=== PATIENT | female | born 1950 | race Caucasian/White ===

== ENCOUNTER 2018-05-09 15:29 | Observation (INO) ==
[2018-05-09] MEDS ORDERED: ASPIRIN PO ONE (15:41)
--- NOTE | 2018-05-09 16:01 | Diag Imaging Result Doc PS360 ---
EXAM: CHEST-2 VIEWS 05/09/2018 HISTORY: CP TECHNIQUE: PA and lateral chest COMMENT: There is a fairly large hiatal hernia. The heart size and pulmonary vascularity are within normal limits. The lungs appear to be clear. There are no previous studies. IMPRESSION: Hiatal hernia. Electronically signed by Sher Herring 05/09/2018 3:58 PM
[2018-05-09 16:15] LABS: BASO# 0.02 X1000 (0.0-0.2); BASO% 0.2 % (0.0-0.8); EOS% 0.9 % (0.0-10.0); HEMATOCRIT 40.5 % (37.0-47.0); HEMOGLOBIN 13.1 g/dL (12.0-16.0); IMM GRAN# 0.02 X1000 (0.0-0.04); IMM GRAN% 0.2 % (0.0-0.5); LYMPH# 3.04 X1000 (1.2-3.4); LYMPH% 26.3 % (20.5-51.1); MCH 27.9 PG (27-31); MCHC 32.3 g/dL (33-37); MCV 86.4 FL (81-99); MONO# 0.94 X1000 (0.11-0.59); MONO% 8.1 % (1.7-9.3); MPV 11.3 FL (7.4-10.4); NEUT# 7.44 X1000 (1.4-6.5); NEUT% 64.3 % (42.2-75.2); PLT 239 X1000 (130-400); RBC 4.69 XMIL (4.2-5.4); RDW 15.2 % (11.5-14.5); WBC 11.56 X1000 (4.8-10.8)
[2018-05-09 16:27] LABS: AGAP 14; ALB/GLOB RATIO 1.4; ALBUMIN 3.9 g/dL (3.5-5.0); ALKALINE PHOSPHATASE 65 U/L (32-104); BUN 14 mg/dL (8-22); CALCIUM 9.1 mg/dL (8.8-10.2); CHLORIDE 104 mmol/L (98-107); CK PROFILE 112 U/L (24-173); COSMO 286; CREATININE 0.7 mg/dL (0.5-0.9); ESTIMATED GFR > 60; GLUCOSE 181 mg/dL (70-104); GOT 14 U/L (10-30); GPT 16 U/L (10-36); POTASSIUM 4.2 mmol/L (3.5-5.1); SODIUM 141 mmol/L (136-145); TCO2 23 mmol/L (25-35); TOTAL BILIRUBIN 0.53 mg/dL (0.20-1.00); TOTAL PROTEIN 6.6 g/dL (6.3-8.3)
[2018-05-09 17:20] LABS: INR 0.99; PROTIME 13.9 Seconds (11.0-16.0)
--- NOTE | 2018-05-09 17:59 | PROVIDER DOCUMENTATION ---
This chart was entered by Emely Bullock Scribe, acting as scribe for John Alvarez MD. HPI-Cardiac General - General Source: patient - History of Present Illness-Cardiac Location: reports: central Quality of Pain: reports: pressure Severity in ED: mild Onset/Duration: this afternoon (1500) Timing: still present Context/Activities at Onset: reports: light activity Modifying Factors: improves with: nothing Palpitation Quality: fast/pounding heart beat History of arrythmia: reports: none Aspirin Treatment Today: reports: 325 mg x 1, provided by ED Associated Symptoms: reports: denies symptoms Similar Symptoms Previously?: No Recently Seen Here or By Another Healthcare Provider: No <John Alvarez - Last Filed: 05/09/18 18:53> <Andrew Monaco - Last Filed: 05/09/18 22:13> - General Chief Complaint: Chest Pain Stated Complaint: CHEST PRESSURE Time Seen by Provider: 05/09/18 17:27 Allergies/Adverse Reactions: Patient Allergies Allergy/AdvReac Type Severity Reaction Status Date / Time No Known Allergies Allergy Verified 05/09/18 19:05 - History of Present Illness-Cardiac Nature of Presenting Problem: Patient is a 67 year old female who presents to the ED with palpitations. Patient states palpitations started today around 1500. Patient states having chest pain Monday that resolved. Patient denies shortness of breath. (Emely Bullock) Patient is a 67 year old female who presents to the ED with palpitations. Patient states palpitations started today around 1500. Patient states having chest pain Monday that resolved. Patient denies shortness of breath. (John Alvarez) Review of Systems - Adult - REVIEW OF SYSTEMS - ADULT Constitutional: reports: no symptoms reported Eyes: reports: no symptoms reported Ears, Nose, Mouth & Throat: reports: no symptoms reported Cardiovascular: reports: palpitations. denies: chest pain, heart murmur Respiratory: reports: no symptoms reported Gastrointestinal: reports: no symptoms reported Genitourinary: reports: no symptoms reported Musculoskeletal: reports: no symptoms reported Integumentary: reports: no symptoms reported Neurological: reports: no symptoms reported Psychiatric: reports: no symptoms reported Endocrine: reports: no symptoms reported Hematologic/Lymphatic: reports: no symptoms reported Allergic/Immunologic: reports: no symptoms reported All Other Systems: Reviewed and Negative <ShelliebiJohn X. - Last Filed: 05/09/18 18:53> Past History - Adult - PAST MEDICAL HISTORY-ADULT Review of Records: reports: Nursing Assessment Review, Medications Reviewed, Social history reviewed & non-contributory. Major Childhood Illnesses: reports: denies history Cardiovascular: reports: denies history Respiratory: reports: denies history Gastrointestinal: reports: denies history Obstetrical/Gynecological: reports: denies history Genitourinary: reports: denies history Musculoskeletal: reports: denies history Neurological: reports: denies history Psychiatric: reports: denies history Endocrine/Immune: reports: denies history Other Conditions: reports: denies history - PRIOR SURGERIES/PROCEDURES Surgical/Procedure History: reports: reviewed, not pertinent - IMMUNIZATION STATUS Childhood Immunizations: See Nurse Assessment Flu Vaccine: See Nurse Assessment - FAMILY HISTORY Family History: reviewed, not pertinent - SOCIAL HISTORY Smoking: denies Substance Use: denies <ShelliebiKietJohn X. - Last Filed: 05/09/18 18:53> Physical Exam-General - PHYSICAL EXAM-ADULT Initial Vital Signs Reviewed: Yes - CONSTITUTIONAL General Appearance: alert, no apparent distress - HEAD, EARS, NOSE, MOUTH & THROAT HENMT: normal ENT inspection - RESPIRATORY Respiratory: chest non-tender, lungs clear, normal breath sounds - CARDIOVASCULAR Cardiovascular: irregularly irregular - GASTROINTESTINAL (ABDOMEN) Abdominal Exam: normal bowel sounds, non tender, soft - MUSCULOSKELETAL Extremity: non-tender, normal inspection - SKIN Integumentary: normal color, normal turgor, warm/dry - NEUROLOGIC Neurologic: grossly normal - PSYCHIATRIC Psych/Mental Status: normal mood/affect, oriented x 3 <GyebiKietJohn X. - Last Filed: 05/09/18 18:53> Progress - PLAN OF CARE/RESULTS Result Diagrams: 05/09/18 15:45 05/09/18 15:45 - EKG 1 Time of EKG reading by physician:: 15:38 EKG Read and Signed by:: Rolanda Cannon EKG Interpretation (*Must complete 3 of following elements*): Abnormal ( anteroseptal infarct, age undetermined; ST & T wave abnormality, consider lateral ischemia) Rate: 153 Rhythm: sinus tachycardia with premature supraventricular complexes Comments: left axis deviation; inferior infarct, age undetermined; - XRAY 1 XRAY Study: Chest Impression: See EMR Report (EXAM: CHEST-2 VIEWS 05/09/2018 HISTORY: CP TECHNIQUE: PA and lateral chest COMMENT: There is a fairly large hiatal hernia. The heart size and pulmonary vascularity are within normal limits. The lungs appear to be clear. There are no previous studies. IMPRESSION: Hiatal hernia. Electronically signed by Sher Herring 05/09/2018 3:58 PM 05/09/18 1558 Interpreting Physician: Sher Herring MD Dictated Date/Time: 1550 cc: Rolanda Cannon MD; None,PCP) - CHANGE OF SHIFT REPORT (ED Provider) Report Given and Care Transferred to:: THIERRY Monaco Time of Transfer: 19:00 Items Pending: CT/MRI Results <John Alvarez. - Last Filed: 05/09/18 18:53> - PLAN OF CARE/RESULTS Result Diagrams: 05/09/18 15:45 05/09/18 15:45 - EKG 2 Time of EKG reading by physician:: 21:45 EKG Read and Signed by:: Dave Cox EKG Interpretation (*Must complete 3 of following elements*): Abnormal Rate: 75 Rhythm: nsr Haworth: left QRS: Q Waves present OK Interval: normal ST Wave: normal Prior EKG Comparison: changes noted - CT/MRI 1 Impression: See EMR Report (EXAM: CT ANGIOGRM PULMONARY ARTERIES 05/09/2018 HISTORY: chest pain TECHNIQUE: This exam was performed using automated exposure control, adjustment of mA or kV according to patient size, and/or use of iterative reconstruction technique. COMMENT: 3-D MIPS were performed. There are no previous studies available for comparison. There are no filling defects in the pulmonary arteries. The aorta is not distended and there is no evidence of dissection. There is a large hiatal hernia. There is some pleural fibrosis in the apices. There is no evidence of acute pulmonary disease otherwise. There are degenerative changes in the visualized portion of the lumbar spine as well as the thoracic spine. There is no evidence of acute bony disease. IMPRESSION: No evidence of pulmonary emboli.) - CONSULTS/PCP/HOSPITALIST Notification #1 *Consult/PCP/Hospitalist*: Dr. Torres Time Discussed: 21:56 Consult Disposition: Admit <Jacinda,Andrew D - Last Filed: 05/09/18 22:13> - PLAN OF CARE/RESULTS Progress/Plan/Lab Results: Vital Signs - 8 hr 05/09/18 15:36 Temperature 100 F H Pulse Rate 68 Respiratory Rate 18 Blood Pressure 149/76 O2 Sat by Pulse Oximetry 99 Laboratory Results - last 24 hr 05/09/18 05/09/18 05/09/18 15:45 15:45 15:45 WBC 11.56 H RBC 4.69 Hgb 13.1 Hct 40.5 MCV 86.4 MCH 27.9 MCHC 32.3 L RDW Std Deviation 15.2 H Plt Count 239 MPV 11.3 H Immature Gran % (Auto) 0.2 Neut % (Auto) 64.3 Lymph % (Auto) 26.3 Walton % (Auto) 8.1 Eos % (Auto) 0.9 Baso % (Auto) 0.2 Immature Gran # (Auto) 0.02 Neut # (Auto) 7.44 H Lymph # (Auto) 3.04 Walton # (Auto) 0.94 H Eos # (Auto) 0.10 Baso # (Auto) 0.02 PT INR PTT (Actin FS) D-Dimer, Quantitative Sodium 141 Potassium 4.2 Chloride 104 Carbon Dioxide 23 L Anion Gap 14 BUN 14 Creatinine 0.7 Estimated GFR/1.73 m2 > 60 BUN/Creatinine Ratio 20 Glucose 181 H Calculated Osmolality 286 Calcium 9.1 Total Bilirubin 0.53 AST 14 ALT 16 Alkaline Phosphatase 65 Creatine Kinase 112 Troponin T Kir-D-Umexyeaziox Pept 291 Total Protein 6.6 Albumin 3.9 Globulin 2.7 Albumin/Globulin Ratio 1.4 TSH 05/09/18 05/09/18 05/09/18 15:45 15:45 15:45 WBC RBC Hgb Hct MCV MCH MCHC RDW Std Deviation Plt Count MPV Immature Gran % (Auto) Neut % (Auto) Lymph % (Auto) Walton % (Auto) Eos % (Auto) Baso % (Auto) Immature Gran # (Auto) Neut # (Auto) Lymph # (Auto) Walton # (Auto) Eos # (Auto) Baso # (Auto) PT 13.9 INR 0.99 PTT (Actin FS) 31.0 D-Dimer, Quantitative 0.89 H Sodium Potassium Chloride Carbon Dioxide Anion Gap BUN Creatinine Estimated GFR/1.73 m2 BUN/Creatinine Ratio Glucose Calculated Osmolality Calcium Total Bilirubin AST ALT Alkaline Phosphatase Creatine Kinase Troponin T < 0.010 Gvq-F-Dozukphxghb Pept Total Protein Albumin Globulin Albumin/Globulin Ratio TSH 05/09/18 15:45 WBC RBC Hgb Hct MCV MCH MCHC RDW Std Deviation Plt Count MPV Immature Gran % (Auto) Neut % (Auto) Lymph % (Auto) Walton % (Auto) Eos % (Auto) Baso % (Auto) Immature Gran # (Auto) Neut # (Auto) Lymph # (Auto) Walton # (Auto) Eos # (Auto) Baso # (Auto) PT INR PTT (Actin FS) D-Dimer, Quantitative Sodium Potassium Chloride Carbon Dioxide Anion Gap BUN Creatinine Estimated GFR/1.73 m2 BUN/Creatinine Ratio Glucose Calculated Osmolality Calcium Total Bilirubin AST ALT Alkaline Phosphatase Creatine Kinase Troponin T Bxv-Q-Wvjzbuocnva Pept Total Protein Albumin Globulin Albumin/Globulin Ratio TSH 3.32 Orders Category Date Time Status Cardiac Monitoring DIRECTED Care 05/09/18 15:41 Active Nursing- Obtain EKG once Care 05/09/18 20:40 Active Saline Loc NOW Care 05/09/18 15:41 Active CHEST-2 VIEWS [RAD] Stat Exams 05/09/18 15:[address] ANGIOGRM PULMONARY ARTERIES [CT] Stat Exams 05/09/18 18:38 Completed CBC WITH ELECTRONIC DIFF [HEME] Stat Lab 05/09/18 15:45 Completed CK PROFILE [SP CHEM] Stat Lab 05/09/18 15:45 Completed COMPREHENSIVE METABOLIC PANEL [CHEM] Stat Lab 05/09/18 15:45 Completed D-DIMER [COAG] Stat Lab 05/09/18 15:45 Completed PRO B-NATRIURETIC PEPTIDE Stat Lab 05/09/18 15:45 Completed PROTIME WITH INR [COAG] Stat Lab 05/09/18 15:45 Completed PTT [COAG] Stat Lab 05/09/18 15:45 Completed TROPONIN T Stat Lab 05/09/18 15:45 Completed TSH Stat Lab 05/09/18 15:45 Completed URINALYSIS W/POSS RFLX CULT [URINALYSIS] Stat Lab 05/09/18 18:41 Uncollected URINE DRUG SCREEN Stat Lab 05/09/18 18:41 Uncollected 0.9% Sodium Chloride Inj [Ns] 1,000 ml Med 05/09/18 18:08 Discontinued IV 999 mls/hr Aspirin Med 05/09/18 15:41 Discontinued 325 mg PO NOW ONE Metoprolol [Lopressor] Med 05/09/18 19:23 Discontinued 5 mg IV NOW ONE CP/SOB/Palp >45 yrs of Age Stat Oth 05/09/18 15:41 Ordered EKG [EKG] Stat Ther 05/09/18 15:41 Ordered EKG [EKG] Stat Ther 05/09/18 21:37 Ordered Patient turned over to me pending CTA. She has been very tachycardic here in the ER however has converted to a normal sinus rhythm. She has been having these symptoms intermittently for approx one week. Will admit for further workup. Discussed with Dr. Cox. (Andrew Monaco) Departure <John Alvarez. - Last Filed: 05/09/18 18:53> - Departure Date of Disposition Decision: 05/09/18 Time of Disposition Decision: 21:56 Certified Medical Emergency: Emergent - Critical Care Note This patient required my direct & personal management of CC.: No <Andrew Monaco - Last Filed: 05/09/18 22:13> - Departure DIAGNOSIS: Palpitations, Tachycardia Chest pain Qualifiers: Chest pain type: unspecified Qualified Code(s): R07.9 - Chest pain, unspecified Disposition: ADMITTED INPATIENT 09 Condition: Stable Referrals and Follow-Ups: None,PCP [Primary Care Provider] - Attestation - Physician/ AMARA Attestation The physician spent face to face time with patient:: Yes Advanced Practice Provider documentation review:: Supervising physician onsite and consulted in the evaluation and care of this patient. The physician did have a face to face encounter with the patient. <John Alvarez. - Last Filed: 05/09/18 18:53> - Physician/ AMARA Attestation Patient care was provided by Advanced Practice Provider:: Yes Advanced Practice Provider:: Andrew Monaco Advanced Practice Provider documentation review:: The Mid-level provider documentation, treatment plan and medical decision making was reviewed by the physician who agrees with all treatment and medical decision making by the MLP. The physician spent face to face time with patient:: Yes Advanced Practice Provider documentation review:: Supervising physician onsite and consulted in the evaluation and care of this patient. The physician did have a face to face encounter with the patient. <Andrew Monaco - Last Filed: 05/09/18 22:13> This chart was documented by the indicated scribe, (Emely Bullock Scribe) and accurately reflects the services I performed and decisions made by Kim weems Kofi X., MD, as attested by the provider's signature.
[2018-05-09] MEDS ORDERED: NS 1,000 ML IV ONE (18:08)
[2018-05-09] MEDS ORDERED: LOPRESSOR IV ONE (19:23)
--- NOTE | 2018-05-09 20:22 | Diag Imaging Result Doc PS360 ---
EXAM: CT ANGIOGRM PULMONARY ARTERIES 05/09/2018 HISTORY: chest pain TECHNIQUE: This exam was performed using automated exposure control, adjustment of mA or kV according to patient size, and/or use of iterative reconstruction technique. COMMENT: 3-D MIPS were performed. There are no previous studies available for comparison. There are no filling defects in the pulmonary arteries. The aorta is not distended and there is no evidence of dissection. There is a large hiatal hernia. There is some pleural fibrosis in the apices. There is no evidence of acute pulmonary disease otherwise. There are degenerative changes in the visualized portion of the lumbar spine as well as the thoracic spine. There is no evidence of acute bony disease. IMPRESSION: No evidence of pulmonary emboli. Electronically signed by Sher Herring 05/09/2018 8:20 PM
[2018-05-09] MEDS ORDERED: COREG PO ONE (23:36)
[2018-05-09] MEDS ORDERED: SODIUM CHLORIDE 0.9% INJ SCH (23:45)
[2018-05-09] MEDS ORDERED: PROTONIX IV SCH (23:45)
[2018-05-10] MEDS ORDERED: NITROGLYCERIN TOP SCH (00:15)
[2018-05-10] MEDS ORDERED: NS 1,000 ML IV SCH (00:15)
[2018-05-10] MEDS ORDERED: LIPITOR PO ONE (00:17)
--- NOTE | 2018-05-10 05:22 | HISTORY AND PHYSICAL ---
CHIEF COMPLAINT: Chest tightness, which the patient has had for about 2 days. HISTORY OF PRESENT ILLNESS: Ms. Cielo Pires is a 67-year-old female with a history of mitral valve prolapse as well as hyperlipidemia. The patient presents to the hospital because of mid chest pain and chest tightness, which she has had for about 2 days' period now. She describes it as intermittent, and usually when she has the pain it lasts about 4-5 hours. It is improved with rest. No known aggravating factors. The patient has had associated palpitations and shortness of breath. No diaphoresis. When she presented to the ER, the patient was tachycardic with heart rate as high as 150. She was evaluated in the ER and she has now been admitted to the floor for further management. PAST MEDICAL HISTORY: Is that of hyperlipidemia as well as a mitral valve prolapse. SOCIAL HISTORY: No cigarette smoking, alcohol or drug use. ALLERGIES: No known drug allergies. FAMILY HISTORY: Positive for coronary artery disease. MEDICATIONS: The patient takes Lipitor as well as fish oil. ALLERGIES: No known drug allergies. REVIEW OF SYSTEMS: Constitutional: No fever. She has headaches with dizziness. Eyes: No blurred vision. Ear, Nose, and Throat: No sinus problems. No hair loss. The patient does have some ringing in the ear. Respiratory: No cough. Gastrointestinal: No nausea, vomiting, diarrhea, or constipation. Genitourinary: No dysuria. Musculoskeletal: Multiple joint pains. Psychiatric: Positive for anxiety. No depression. Dermatology: She does have history of skin cancer. Hematology: No bleeding problems. Endocrinology: No issues with thyroid or diabetes. Rheumatology: No issues suggestive of allergic rhinitis. PHYSICAL EXAMINATION: VITAL SIGNS: Temperature is 100 degrees, pulse 68, respiratory rate is 18, blood pressure is 149/76, oxygen saturation is 99%. HEENT: Head is atraumatic and normocephalic. Sclerae are anicteric. Extraocular movements are intact. No oral lesions. NECK: No lymphadenopathy or thyromegaly. CARDIOVASCULAR: S1, S2. RESPIRATORY: Good air entry bilaterally. ABDOMEN: Soft and nontender. No masses palpated. EXTREMITIES: No evidence of edema. CENTRAL NERVOUS SYSTEM: No gross focal deficits. LABORATORY DATA: WBC is 11.56, hematocrit is 40.5, with a platelet count of 239,000. INR is 7.9. D-dimer is 0.89. Sodium is 141, potassium 4.2, chloride 104, bicarbonate, BUN is 14, creatinine 0.7, and glucose is 181. Chest x-ray, she has had a hernia. CTA of the chest, no evidence of pulmonary embolus. ASSESSMENT AND PLAN: This is a 67-year-old female who presents to the hospital because of chest tightness which was noted over the last 2 days. She also has associated palpitations. 1. Atypical chest pain. We will place the patient is on telemetry. Follow up on serial cardiac enzymes. Maintain the patient on aspirin as well as beta suzanne. Use Nitropaste 1 inch every 6 hours as needed for chest pain day. Obtain a 2D echocardiogram of the heart. The patient will also require noninvasive cardiac evaluation for coronary heart disease. 2. History of mitral valve fluids. Follow up on 2D echocardiogram history. 3. Hyperlipidemia. Obtain fasting lipid panel. Continue the patient on [*] 4. Elevated D-dimer. We will get Doppler of both lower extremities. Computed tomography angiography of the chest negative for pulmonary embolus. 5. Hypoglycemia. The patient is not a known diabetic. We will check hemoglobin A1c level. 6. Probable sepsis. Maintain the patient on intravenous fluids and initiate a septic workup. 7. Deep vein thrombosis prophylaxis. Lovenox. 8. Gastrointestinal prophylaxis. Proton pump inhibitor. cc: Yahir Torres MD
--- NOTE | 2018-05-10 07:32 | EKG Report ---
Test Performed on : 05/09/2018 3:38:20 PM Test Reason : CP Blood Pressure : / mmHG Vent. Rate : 153 BPM Atrial Rate : 153 BPM P-R Int : 148 ms QRS Dur : 074 ms QT Int : 306 ms P-R-T Axes : 082 -39 119 degrees QTc Int : 488 ms Sinus tachycardia. with premature supraventricular complexes. Left axis deviation Inferior infarct , age undetermined Anteroseptal infarct , age undetermined ST & T wave abnormality, consider lateral ischemia Abnormal ECG No previous ECGs available Unconfirmed Result
[2018-05-10] MEDS ORDERED: LOVENOX SUBQ SCH (09:00)
[2018-05-10] MEDS ORDERED: FISH OIL CONCENTRATE PO SCH (09:00)
[2018-05-10] MEDS ORDERED: ASPIRIN PO SCH (09:00)
[2018-05-10 09:05] LABS: CHOLESTEROL 198 mg/dL (0-200); HDL 63 mg/dL (45-65); LDL 115 mg/dL; TRIGLYCERIDES 102 mg/dL (35-135); VLDL 20 mg/dL
--- NOTE | 2018-05-10 09:13 | EKG Report ---
Test Performed on : 05/09/2018 9:45:45 PM Test Reason : CP Blood Pressure : / mmHG Vent. Rate : 075 BPM Atrial Rate : 075 BPM P-R Int : 182 ms QRS Dur : 084 ms QT Int : 412 ms P-R-T Axes : 034 -48 057 degrees QTc Int : 460 ms Normal sinus rhythm. Possible Left atrial enlargement Left anterior fascicular block Cannot rule out Inferior infarct , age undetermined Anterior infarct , age undetermined Abnormal ECG No previous ECGs available Unconfirmed Result
--- NOTE | 2018-05-10 09:16 | EKG Report ---
Test Performed on : 05/09/2018 5:41:11 PM Test Reason : CP Blood Pressure : / mmHG Vent. Rate : 151 BPM Atrial Rate : 150 BPM P-R Int : 000 ms QRS Dur : 072 ms QT Int : 284 ms P-R-T Axes : 000 -46 103 degrees QTc Int : 450 ms Undetermined rhythm Left axis deviation Inferior infarct (cited on or before 09-MAY-2018) Anteroseptal infarct (cited on or before 09-MAY-2018) Abnormal ECG When compared with ECG of 09-MAY-2018 15:38, (Unconfirmed) Current undetermined rhythm precludes rhythm comparison, needs review Unconfirmed Result
[2018-05-10] MEDS ORDERED: LOPRESSOR ONE (13:13)
[2018-05-10 14:11] LABS: URINE SOURCE CLEAN CATCH
[2018-05-10 14:14] LABS: BILIRUBIN URINE NEGATIVE (NEGATIVE); BLOOD URINE NEGATIVE (NEGATIVE); COLOR YELLOW; GLUCOSE URINE NEGATIVE (NEGATIVE); KETONE URINE NEGATIVE (NEGATIVE); LEUKOCYTES URINE NEGATIVE (NEGATIVE); NITRITE URINE NEGATIVE (NEGATIVE); PH URINE 6.5; PROTEIN URINE NEGATIVE (NEGATIVE); SP GRAVITY URINE 1.025; TURBIDITY URINE CLEAR (CLEAR); UROBILINOGEN URINE NORMAL (NORMAL)
[2018-05-10 14:16] LABS: UR EPITHELIAL CELLS <10 /HPF (<10); URINE BACTERIA 2+ /HPF; URINE RBC <10 /HPF (<10); URINE WBC <10 /HPF (<10)
[2018-05-10 14:28] LABS: UR AMPHETAMINES QUAL NONE DETECTED (NONE DETECT); UR BARBITUATES QUAL NONE DETECTED (NONE DETECT); UR BENZODIAZEPIN QUAL NONE DETECTED (NONE DETECT); UR CANNABINOIDS QUAL NONE DETECTED (NONE DETECT); UR COCAINE QUAL NONE DETECTED (NONE DETECT); UR METHADONE QUAL NONE DETECTED (NONE DETECT); UR OPIATES QUAL NONE DETECTED (NONE DETECT); UR OXYCODONE QUAL NONE DETECTED (NONE DETECT); UR PCP QUAL NONE DETECTED (NONE DETECT)
--- NOTE | 2018-05-10 14:31 | ECHO REPORT ---
ORDER DATE: 05/09/2018 INTERPRETING PHYSICIAN: Dr. Felipe Lora. ECHOCARDIOGRAPHIC MEASUREMENTS: 1. Interventricular septum 0.6 cm. 2. Left ventricular posterior wall 0.7 cm. 3. Diastolic diameter 4.9 cm. 4. Left atrium 3.7 cm. 5. Aorta 3.0 cm. SUMMARY OF THE 2-DIMENSIONAL IMAGIN. Aortic valve leaflets are trileaflet. Pulmonic valve was normal. There is mild pulmonary regurgitation. Tricuspid valve was normal. Mitral valve was normal. 2. Peak velocity across the aortic valve less than 2 m/sec by Doppler studies. There is no aortic stenosis or regurgitation. 3. Technically suboptimal study. Definity was used to assess left ventricular systolic function. There is mild left atrial enlargement. Interatrial septum is mobile. 4. There is pliho-fn-hbjx mitral regurgitation. Mild tricuspid regurgitation. Peak velocity across the tricuspid valve was 2.6 m/sec. 5. There is no pericardial effusion or obvious intracardiac mass or thrombus seen. 6. Definity was used to assess left ventricular systolic function. Normal left ventricular cavity size. Estimated ejection fraction of 60%-65%. 7. There is no pericardial effusion or obvious intracardiac mass or thrombus seen. cc: MD Yahir Osborne MD
[2018-05-10 14:52] VITALS: BP 124/64
--- NOTE | 2018-05-10 18:08 | Diag Imaging Result Document ---
PROCEDURE NAME: MYOCARDIAL PERF SCAN, STR/REST - 05/10/2018 EXERCISE CARDIOLITE STRESS TEST: TECHNIQUE AND FINDINGS: The patient exercised on Mirza protocol for 6 minutes to a peak heart rate of 200. In stage 2 of exercise, heart rate jumped to 200 beats per minute and was irregular, suggestive of atrial fibrillation. However, there was artifact also noted. She was given metoprolol 5 mg intravenously. Subsequently, she was in sinus rhythm. Baseline electrocardiogram revealed normal sinus rhythm, poor R-wave progression with nonspecific ST-T changes. Baseline blood pressure was 155/88. At target heart rate, blood pressure was 174/95. Cardiolite was injected. Gated SPECT images were obtained in standard views. 11.6 mCi of Cardiolite was injected for the rest phase. 33.8 mCi of Cardiolite was injected for the stress phase. Gated SPECT images revealed normal left ventricular cavity size. There is chest wall attenuation. Normal myocardial perfusion. Left ventricular ejection fraction 81%. CONCLUSIONS: 1. No chest pain. 2. Negative exercise stress electrocardiogram. 3. The patient was in sinus rhythm. At the end of stage 2, the patient went into rapid heart rate with atrial fibrillation, rapid rate of 187 beats to 200 beats per minute. She was given 5 mg IV metoprolol and she was back in sinus rhythm. 4. Normal myocardial perfusion. 5. Left ventricular ejection fraction by gated SPECT 81%. cc: MD Wai Osborne MD
--- NOTE | 2018-05-10 18:46 | PROGRESS NOTE ---
DATE: 05/10/2018 SUBJECTIVE: Patient with initially unremarkable cardiac workup. Troponins negative. Echocardiogram essentially unremarkable. However, patient went for a stress test and during stress test went into rapid atrial fibrillation with heart rate up to approximately 200. She was treated in the cardiovascular lab director and was back into normal sinus rhythm this afternoon at the time of my exam. However, because of new diagnosis of atrial fibrillation with rapid ventricular response she will remain for further cardiac evaluation. Essentially asymptomatic at the time of my exam. EXAMINATION: Heart: Regular rate and rhythm. Lungs: Clear. Abdomen: Soft, nontender.
--- NOTE | 2018-05-10 19:11 | CARDIOLOGY CONSULTATION ---
DATE: 05/10/2018 CHIEF COMPLAINT: Chest discomfort and palpitations. HISTORY OF PRESENT ILLNESS: Consultation was requested by the Hospitalist service on 05/10/2018. Ms. Pires is a 67-year-old female who presented to the emergency room with complaints of palpitations as well as feelings of chest discomfort and pressure that had started 2 days prior to admission. It improved initially, but then it recurred. The patient was seen at [facility], and from there she was sent over to the emergency room. There was an initial EKG done at 3:28 p.m. on May 09 that showed atrial fibrillation with a rate of 153 beats per minute. The subsequent EKG done at 5:41 p.m. shows also atrial fibrillation with rapid response at 151 beats per minute. The patient at this time has converted to sinus rhythm. Rate is 75 beats per minute. She is not having any major symptoms. Denies nauseas, vomiting or diaphoresis. PAST MEDICAL HISTORY: Positive for: 1. Hyperlipidemia. 2. Hiatal hernia. 3. Question of supraventricular tachycardia in the past. PAST SURGICAL HISTORY: 1. Hysterectomy. 2. Lumbar surgery. 3. Hand surgery on the right side and the left side. SOCIAL HISTORY: She is . 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 She lives at home. She used tobacco shortly. FAMILY HISTORY: Father with coronary bypass surgery, mother with Alzheimer disease. ALLERGIES: Nickel. HOME MEDICATIONS: 1. Aspirin. 2. [place]-3 fish oil. 3. Protonix. REVIEW OF SYSTEMS: She has a history of heartburn since her palpitations. Otherwise, she is quite functional. PHYSICAL EXAMINATION: Vital Signs: Blood pressure 145/65, pulse 65, temperature 100 degrees, respirations 18. General: She is awake and alert, in no distress. HEENT: Unremarkable. Chest: Clear to auscultation and percussion. Heart sounds are regular and rhythmic. She does have a systolic click. Abdomen: Nontender. Extremities: Show good pulses. No edema. Neurological: Follows commands and moves four extremities. BLOOD WORK: White count 11,460, hemoglobin 13.1, hematocrit 40.5, D-dimer 0.89. Sodium 141, potassium 4.2, BUN 14, creatinine 0.7. Troponin is 0.010, pro-BNP 291. Triglycerides 102, cholesterol 198, LDL 115, HDL 63. TSH is normal. IMAGING: Chest x-ray done showed a hiatal hernia. CT of the chest pulmonary angiogram protocol that was done because of the D-dimer elevation is negative for pulmonary embolus. It does show a large hiatal hernia. IMPRESSION: 1. The patient presented basically with symptoms consistent with paroxysmal atrial fibrillation. 2. Atypical chest discomfort. 3. Presence of a hiatal hernia. 4. History of hyperlipidemia. RECOMMENDATIONS: At this time we will proceed with an echocardiogram and a myocardial perfusion stress test. Further advice will be forthcoming. Clinical correlation recommended. cc: Wai Palomino MD
--- NOTE | 2018-05-11 15:34 | Extremity Venous Study ---
PROCEDURE NAME: Venous U/S Bilateral Legs - 05/10/2018 BILATERAL LOWER EXTREMITY VENOUS STUDY: REQUESTING PHYSICIAN: Dr. Yahir Torres. PROFESSOR OF LEGAL STUDIES: Justino. INDICATIONS: Shortness of breath with elevated D-dimer. EQUIPMENT: SprinkleBit Vivid E9 ultrasound system with a 9 LD transducer. FINDINGS: Images of bilateral lower extremity venous systems were obtained in both sagittal and transverse planes. Doppler was used to evaluate veins for spontaneity, phasicity, respiratory excursion, and digital augmentation. RESULTS: No obvious superficial or deep venous thrombosis noted. There is reflux noted in the right superficial femoral vein and the left common femoral vein. The right greater saphenous vein appears to be closed which may be related to radiofrequency ablation. INTERPRETATION: Reflux noted in the right superficial femoral vein and right common femoral vein. No obvious superficial or deep venous thrombosis. cc: MD Yahir Ac MD
--- NOTE | 2018-05-12 05:50 | DISCHARGE SUMMARY ---
ADMISSION DATE: 05/10/2018 DISCHARGE DATE: 05/10/2018 CONSULTS: Cardiology. PROCEDURES: Cardiac stress test which was unremarkable. IMAGING: Chest x-ray, no acute process. CTA chest with no acute process. LABORATORY DATA: Troponins negative x3. D-dimer minimally elevated at 0 29, but CTA negative as above. Urinalysis unremarkable. Chemistry unremarkable. DISCHARGE DIAGNOSES: 1. Chest pain. 2. Paroxysmal atrial fibrillation. 3. Hyperlipidemia. HOSPITAL COURSE: The patient presented initially complaining of atypical chest pain and tightness which had been going on for 2 days, but had had previous episodes rarely for quite some time. Initial workup with troponins and CTA chest were unremarkable. She received a cardiac stress test after consultation with Cardiology. During the stress test she developed atrial fibrillation with RVR. She was given 5 mg of IV metoprolol at that time, after which she converted back to normal sinus rhythm with normal rate. As workup for acute coronary syndrome was negative with normal troponins and a negative stress test, and Cardiology felt that her symptoms had been caused by paroxysmal atrial fibrillation, and it was felt that she was stable for discharge on metoprolol-XL and Xarelto. The risks and benefits of anticoagulation including stroke without anticoagulation or bleeding including intracranial bleeding with anticoagulation were explained to the patient and she expressed understanding. DISCHARGE VITAL SIGNS: Temperature 99.0 degrees, pulse 76, respirations 20, blood pressure 124/64, O2 saturation 100% on room air. DISCHARGE PHYSICAL EXAMINATION: General: No acute distress. Vitals Signs: As above. HEENT: Normocephalic and atraumatic. Moist mucous membranes. No JVD. No cervical adenopathy. Cardiovascular: Regular rate and rhythm. No murmurs, rubs, or gallops. Pulmonary: Clear to auscultation bilaterally. No wheezing, rales, or rhonchi. Abdomen: Soft, nontender, and nondistended. Bowel sounds positive. Extremities: With 2+ pulses. No clubbing, cyanosis, or edema. Neurologic: Cranial nerves II-XII grossly intact. No focal motor sensory deficits. Psychiatric: Normal mood and affect. Awake, alert, and oriented x3. Skin: No new rashes or lesions identified. DISCHARGE DIET: Low-salt. DISCHARGE MEDICATIONS: Aspirin 81 mg p.o. daily, metoprolol succinate 100 mg p.o. daily, omega-3 fish oil, Xarelto 20 mg p.o. daily. FOLLOW-UP AND PLAN: The patient to discharge home on beta suzanne and Xarelto. The patient to follow up with Cardiology and her PCP. The patient is instructed to avoid putting herself in situations where she may fall from a height and strike her head. Greater than 30 minutes was spent arranging discharge and counseling the patient. [facility] MEDICAL CENTERCharly
== END 2018-05-10 18:17 | disposition home or self-care (01) ==
LOC: ED 15:29 → SUATTDRO 05-10 05:57 → INTOOBSV 05-10 05:57 → EDIPHOLD 05-10 05:57 → 4N 05-10 13:43
PROVIDERS: ATTEND Internal Medicine
CPT/HCPCS: 36415; 71020; 71046; 71275; 78452; 80053; 80061; 80101; 80301; 80307; 80324; 80345; 80346; 80353; 80358; 80361; 80365; 81001; 82550; 83880; 83992; 84443; 84484; 85025; 85379; 85610; 85730; 87040; 87088; 87275; 87276; 87804; 93005; 93017; 93306; 93970; 99285; A9270; A9500; C8929; C9113; G0431; G0434; G0479; G0480; J7030; Q9957; Q9967; S0164

== ENCOUNTER 2019-07-18 06:02 | Day surgery (SDC) ==
--- NOTE | 2019-07-15 14:18 | EKG Report ---
Test Performed on : 07/15/2019 2:07:46 PM Test Reason : PAT Blood Pressure : / mmHG Vent. Rate : 056 BPM Atrial Rate : 056 BPM P-R Int : 214 ms QRS Dur : 080 ms QT Int : 464 ms P-R-T Axes : 040 -26 061 degrees QTc Int : 447 ms Sinus bradycardia. with 1st degree AV block. Low voltage QRS Inferior infarct , age undetermined Cannot rule out Anteroseptal infarct (cited on or before 09-MAY-2018) Abnormal ECG When compared with ECG of 10-MAY-2018 07:23, WA interval has increased Confirmed by Richard Dominguez MD ([id number]) on 07/16/2019 7:43:53 PM
[2019-07-15 14:33] LABS: BASO# 0.03 X1000 (0.0-0.2); BASO% 0.4 % (0.0-0.8); EOS# 0.17 X1000 (0.0-0.7); EOS% 2.2 % (0.0-10.0); HEMATOCRIT 40.7 % (37.0-47.0); HEMOGLOBIN 13.1 g/dL (12.0-16.0); LYMPH# 3.09 X1000 (1.2-3.4); LYMPH% 39.9 % (20.5-51.1); MCH 28.5 PG (27-31); MCHC 32.2 g/dL (33-37); MCV 88.5 FL (81-99); MONO# 0.62 X1000 (0.11-0.59); MPV 11.5 FL (7.4-10.4); NEUT# 3.84 X1000 (1.4-6.5); NEUT% 49.5 % (42.2-75.2); PLT 207 X1000 (130-400); RDW 14.3 % (11.5-14.5); WBC 7.75 X1000 (4.8-10.8)
[2019-07-15 15:11] LABS: AGAP 11; BUN 12 mg/dL (8-22); CALCIUM 8.6 mg/dL (8.8-10.2); CHLORIDE 105 mmol/L (98-107); COSMO 281; CREATININE 0.6 mg/dL (0.5-0.9); ESTIMATED GFR > 60; GLUCOSE 93 mg/dL (70-104); POTASSIUM 3.9 mmol/L (3.5-5.1); SODIUM 141 mmol/L (136-145); TCO2 25 mmol/L (25-35)
[2019-07-18] MEDS ORDERED: LR 1,000 ML ONE ×2 (06:25→06:31)
[2019-07-18] MEDS ORDERED: KEFZOL 1 GM/D5W 1 GM/50 ML IVPB ONE (06:25)
[2019-07-18] MEDS ORDERED: MARCAINE 0.25% PF/EPI 1:200,000 ONE (06:31)
[2019-07-18] MEDS ORDERED: PEPCID ONE (06:44)
[2019-07-18] MEDS ORDERED: REGLAN ONE (06:44)
[2019-07-18] MEDS ORDERED: DIPRIVAN 1% ONE (06:47)
[2019-07-18] MEDS ORDERED: FENTANYL ONE (06:47)
[2019-07-18] MEDS ORDERED: XYLOCAINE-MPF 2% ONE (06:50)
[2019-07-18] MEDS ORDERED: SODIUM CHLORIDE 0.9% 10 ML ONE ×2 (06:50→06:55)
[2019-07-18] MEDS ORDERED: ROBINUL ONE ×2 (06:50→09:11)
[2019-07-18] MEDS ORDERED: NORCURON ONE (06:50)
[2019-07-18] MEDS ORDERED: QUELICIN (DOSE) ONE (06:50)
[2019-07-18] MEDS ORDERED: EPHEDRINE ONE (06:55)
[2019-07-18] MEDS ORDERED: APRESOLINE ONE (08:05)
[2019-07-18 08:06] LABS: URINE SOURCE CATH
[2019-07-18 08:11] LABS: BILIRUBIN URINE NEGATIVE (NEGATIVE); BLOOD URINE NEGATIVE (NEGATIVE); COLOR YELLOW; GLUCOSE URINE NEGATIVE (NEGATIVE); KETONE URINE NEGATIVE (NEGATIVE); LEUKOCYTES URINE NEGATIVE (NEGATIVE); NITRITE URINE NEGATIVE (NEGATIVE); PH URINE 6.5; PROTEIN URINE NEGATIVE (NEGATIVE); SP GRAVITY URINE 1.011; TURBIDITY URINE CLEAR (CLEAR); UROBILINOGEN URINE NORMAL (NORMAL)
[2019-07-18 08:13] LABS: UR EPITHELIAL CELLS <10 /HPF (<10); URINE BACTERIA NEGATIVE /HPF; URINE RBC <10 /HPF (<10); URINE WBC <10 /HPF (<10)
[2019-07-18] MEDS ORDERED: DECADRON ONE (08:14)
[2019-07-18] MEDS ORDERED: NEOSTIGMINE ONE (09:11)
[2019-07-18] MEDS ORDERED: ZOFRAN ONE (09:13)
[2019-07-18] MEDS ORDERED: NS 1,000 ML ONE (09:53)
[2019-07-18] MEDS: DILAUDID ONE ×2 (09:55→09:58)
--- NOTE | 2019-07-18 10:02 | OPERATIVE NOTE ---
PROCEDURE DATE: 07/18/2019 PROCEDURE PERFORMED: Laparoscopic Jean fundoplication. SURGEON: Dave Dawson MD. ASSISTANTS: Humble Franklin and Stephanie. PREOPERATIVE DIAGNOSES: 1. Large hiatal hernia. 2. Gastroesophageal reflux disease. POSTOPERATIVE DIAGNOSES: 1. Large hiatal hernia. 2. Gastroesophageal reflux disease. DESCRIPTION OF PROCEDURE: Satisfactory general endotracheal anesthesia was achieved. The patient was placed in Tyrone stirrups. I introduced the small Cook catheter easily into the esophagus. We then introduced the large 153 bougie down to about 20 cm. The abdomen was then prepped and draped in a sterile fashion. We anesthetized the skin above the umbilicus, 15 cm below the xiphoid process, made a vertical incision. We dissected down to the fascia, scored the fascia, introduced an 11 trocar with Optiview technique. We insufflated through this trocar. Under direct visualization, used an 11 trocar in the left mid abdomen. We then made a small hole in the right upper quadrant, introduced the medium Larry retractor for the left lobe of the liver. We placed the patient in reverse Trendelenburg. Placed the retractor under the left lobe of the liver and fixed it there with a Larry retractor. The defect was noted to be rather large. We then placed an 11 trocar in the midepigastrium and another one in the left upper quadrant. We used a Marion and grasped the stomach and pulled it down until it was reduced into the abdominal cavity. We then used the LigaSure to divide the gastrohepatic ligament and expose the right dana. We did manipulate the small tube so that we noticed that it was in the stomach. We then grasped the hernia sac and pulled it caudad. Used the electrocautery to disconnect the hernia sac from the edge of the right dana, and continued to pull it out of the mediastinum as we went from right to left. We identified the anterior vagus and avoided and left it without harm. We then turned our attention to the greater curve. Lifted up the greater omentum and used the LigaSure to divide the lesser gastrics all the way up to the left dana, and divided the hernia sac as we entered the mediastinum at the left dana as well and again pulled the hernia sac out of the mediastinum and left it on the cardia of the stomach. We turned our attention back to the right side. An adequate window was made. The left dana was easily identified from the right side as well. We then introduced the large bougie (that is a 53 bougie) over the small Cook catheter into the stomach to gauge the hiatal closure. After doing that, we pulled the large bougie back into the mid esophagus. We then placed a 0 silk endo-stitch, followed by 0 Surgidac endo-stitches to reapproximate the crura. A small rent in the right crura was repaired with another 0 silk endo- stitch. After the crura was repaired, we then used an O'Ellison retractor to retract the stomach. We then passed the reticulating grasper around the esophagus and grasped the fundus of the stomach and brought it nursing home around the back of the esophagus. We then had them advance the large bougie again so that we again would gauge the wrap appropriately. After the large bougie was again positioned in the proximal stomach, we then used a 0 silk endo-stitch to go from the anterior stomach to the esophageal wall to the wrapped stomach and the first stitch was just that. Another 0 silk endo-stitch was placed a centimeter and a half caudad to that. Then a 0 Surgidac was placed between those two. We will felt that one additional silk stitch was indicated between 12 o'clock and 10 o'clock to help again close the crura there and we placed that. We then pulled out the large and small bougie completely. The wrap was adequately floppy. We then secured the wrapped stomach to the right dana x2 with 0 Surgidac and then the anterior stomach to the 2 o'clock position of the diaphragm to pex it or secure it over there. We felt this adequately provided stability to the stomach below the diaphragm. We were satisfied with our wrap. We were satisfied with our closure. We then relaxed the left lobe of the liver and allowed it to resume its normal position. Hemostasis was satisfactory. We flattened the patient. We then used a Didier-Cata wound closure for each trocar site except the wound just above the umbilicus. After those stitches were placed, we then desufflated and removed our trocars. We closed the fascia above the umbilicus with 2-0 Polysorb fascial stitch x2. We then closed the skin at each incision with 4-0 Polysorb subcuticular stitches. Sterile Op-Sites were applied. She tolerated it well and was sent to the recovery room in satisfactory condition. cc: MD Shannan Rogers MD
[2019-07-18] MEDS: ZOFRAN IV PRN (12:36)
--- NOTE | 2019-07-18 17:15 | GENERAL SURGERY PROGRESS NOTE ---
DATE: 07/18/2019 She is lying comfortably. Her only complaint is trouble urinating and has only passed a very little bit of urine. She is without fever. She is not tachycardic with a heart rate about 55. The plan is to get a Gastrografin swallow in the morning and start her on liquids then. cc: Dave Dawson MD
[2019-07-18] MEDS: NS 1,000 ML IV SCH ×2 (18:26→23:53)
[2019-07-18] MEDS: PERIDEX MT SCH (21:08)
[2019-07-18] MEDS: DILAUDID IV PRN (21:08)
[2019-07-19] MEDS: DILAUDID IV PRN ×2 (02:50→06:28)
[2019-07-19] MEDS: ZOFRAN IV PRN (07:23)
--- NOTE | 2019-07-19 08:34 | Diag Imaging Result Doc PS360 ---
EXAM: BA SWALLOW-ESOPHAGUS 07/19/2019 HISTORY: post alethea fundoplication TECHNIQUE: Water-soluble swallow, 10 images, one minute 27 seconds fluoroscopy time, 2541.6 cGy. COMMENT: The patient is able to swallow water soluble contrast without difficulty. There are tertiary contractions throughout the thoracic esophagus. There is no evidence of extravasation of contrast from the area of the fundoplication. There is no evidence of obstruction. No reflux was demonstrated during the examination. IMPRESSION: Presbyesophagus. No evidence of obstruction or leak. Electronically signed by Sher Herring 07/19/2019 8:31 AM
[2019-07-19] MEDS ORDERED: SODIUM CHLORIDE 0.9% INJ PRN (09:11)
[2019-07-19] MEDS ORDERED: MORPHINE IV PRN (09:11)
[2019-07-19] MEDS ORDERED: PHENERGAN IV PRN (09:11)
[2019-07-19] MEDS: PERIDEX MT SCH ×2 (09:34→22:59)
--- NOTE | 2019-07-19 09:45 | GENERAL SURGERY PROGRESS NOTE ---
DATE: 07/19/2019 DATE AND TIME OF EXAM: 07/19/2019 at 0910 hours. SUBJECTIVE: Ms. Pires was nauseated this morning after receiving pain medicine. She did dry heave a couple of times. No vomitus because her stomach is empty. Her barium swallow did look fine without evidence of leak. We will change her pain medicine, allow her to have liquids as she wants, and have something for her nausea as well. cc: Dave Dawson MD
[2019-07-19] MEDS ORDERED: NORCO-7.5 PO PRN (13:39)
[2019-07-19] MEDS ORDERED: NS 1,000 ML IV SCH (13:45)
--- NOTE | 2019-07-19 13:56 | GENERAL SURGERY PROGRESS NOTE ---
DATE: 07/19/2019 The time is now 1:40 PM. She feels better. Her nausea is resolved. She has taken liquids. PLAN: The plan will be to remove her Gaviria catheter now. She will stay on liquids today. We will offer her a p.o. pain pill if needed and then we will keep her until tomorrow. She should be able to go home tomorrow and then return to see me in a week. We discussed activity and diet. cc: Dave Dawson MD
[2019-07-19] MEDS ORDERED: TYLENOL PO PRN (15:50)
[2019-07-20 06:58] LABS: BASO# 0.02 X1000 (0.0-0.2); BASO% 0.2 % (0.0-0.8); EOS# 0.04 X1000 (0.0-0.7); EOS% 0.4 % (0.0-10.0); HEMATOCRIT 39.1 % (37.0-47.0); HEMOGLOBIN 12.2 g/dL (12.0-16.0); IMM GRAN# 0.04 X1000 (0.0-0.04); IMM GRAN% 0.4 % (0.0-0.5); LYMPH# 2.04 X1000 (1.2-3.4); LYMPH% 21.9 % (20.5-51.1); MCH 27.7 PG (27-31); MCHC 31.2 g/dL (33-37); MCV 88.9 FL (81-99); MONO# 1.09 X1000 (0.11-0.59); MONO% 11.7 % (1.7-9.3); MPV 11.8 FL (7.4-10.4); NEUT# 6.08 X1000 (1.4-6.5); NEUT% 65.4 % (42.2-75.2); PLT 172 X1000 (130-400); RDW 14.4 % (11.5-14.5); WBC 9.31 X1000 (4.8-10.8)
--- NOTE | 2019-07-20 07:28 | Diag Imaging Result Doc PS360 ---
EXAM: CHEST-PORTABLE HISTORY: check lung expansion TECHNIQUE: Single view COMPARISON: 05/09/2018 FINDINGS: The lungs are well expanded. The right hemidiaphragm is elevated. The heart is mildly prominent. The vessels are not distended. There are no infiltrates. No effusion identified. Small hiatal hernia. No pneumothoraces. IMPRESSION: Small hiatal hernia. Electronically signed by Woodrow Ferraro 07/20/2019 7:25 AM
[2019-07-20 07:46] VITALS: BP 149/68
[2019-07-20] MEDS: PERIDEX MT SCH (10:12)
--- NOTE | 2019-07-20 17:40 | GENERAL SURGERY PROGRESS NOTE ---
DATE: 07/20/2019 SUBJECTIVE: She feels well. No further nausea or vomiting. She is tolerating p.o. OBJECTIVE: Vital Signs: No fevers. No tachycardia. Abdomen: Soft, nontender, nondistended. Incisions are intact. ASSESSMENT AND PLAN: A 69-year-old female with some nausea status post Jean. She is postop day 2 today. Nausea seemed to be related to pain medicine. As such, she has not required any since yesterday. She wants to go home. She will gradually advance to a soft diet. I have given her instruction on a post-Jean diet and activity. She will see Dr. Dawson in a week. She will call with any worsening symptoms. cc: MD Dave Pham MD
== END 2019-07-20 12:05 | disposition other institution (70) ==
LOC: OR 06:02 → 4N 06:02 → OR 07-20 12:05
PROVIDERS: ATTEND Surgery